=== PATIENT | female | born 1950 | race Caucasian/White ===

== ENCOUNTER 2017-03-05 15:21 | Inpatient (IN) | payer MEDICARE, OTHER ==
[~2017-03-05] VITALS: Ht 162.6 cm; Wt 90.4 kg
--- NOTE | ~2017-03-05 | ER ---
PATIENT'S NAME: TRAUMA, [facility] AGE: 89 Y [address] ROOM: G6202 [place], [place] [address] LOCATION: [facility] ADMIT DATE: 03/05/2017 ER/Outpatient Report DISCHARGE DATE: FAMILY PHYSICIAN: Elier Bernard MD ATTENDING PHYSICIAN: Imelda Saldana Note: This is for the patient Nuha Escobar. CHIEF COMPLAINT: Unresponsive. HISTORY OF PRESENT ILLNESS: Ms. Escobar presents by ambulance after being unresponsive at home. According to family members, the patient had 2 falls today. She also had a fall 2 days previous. She was discharged and had been doing well until this morning when she fell. She was slightly confused after that and then around 2:00 p.m. she fell again, became markedly confused, started having vision issues, and rapidly became unresponsive. The ambulance was contacted and she was brought in directly from home. She has an extensive medical history based on her med list. She has been suffering from some dizziness as well. PAST MEDICAL HISTORY: Again, based on med list review, includes diabetes, possible depression, dizziness, chronic pain, hypertension, high cholesterol. REVIEW OF SYSTEMS: Could not complete secondary to the patient's mental status. PHYSICAL EXAMINATION: VITAL SIGNS: Blood pressure 199/90, pulse 97, respiratory rate is 22, temperature 97.5, SpO2 is 97% on room air. Pain is 0/10. GENERAL: Elderly-appearing female, recumbent on exam table with intermittent sonorous respirations and otherwise unresponsive. NEUROLOGIC: The patient is unresponsive. Pupils are 5 on the right, 3 on the left, minimally responsive. No extraocular movements are noted. There is no tone peripherally. GCS is 3. HEENT: Grossly normocephalic, atraumatic. No obvious external signs of trauma. No bleeding or scalp bogginess or tenderness. The eyes are asymmetric. Pupils minimally reactive. No extraocular movements. Oropharynx is moist. CHEST/HEART: Regular rate and rhythm. No obvious murmurs. Lungs grossly clear to auscultation bilaterally. There are some intermittent sonorous respirations. ABDOMEN: Appears benign to inspection and palpation. BACK: Did not have any obvious abnormalities. EXTREMITIES: Warm and well perfused. PATIENT'S NAME: TRAUMA, [facility] AGE: 89 Y [address] ROOM: G6[address] [place], [place] [address] LOCATION: [facility] ADMIT DATE: 03/05/2017 ER/Outpatient Report DISCHARGE DATE: FAMILY PHYSICIAN: Elier Bernard MD ATTENDING PHYSICIAN: Imelda Saldana SKIN: Appears to be clean, dry, and intact. LABORATORY DATA AND X-RAYS: Head CT reveals extensive bilateral subdural hematomas. EKG is a sinus rhythm, ventricular rate of 75 with first-degree heart block and otherwise normal intervals and axis. No signs of acute ischemia, no comparison available. The chest x-ray shows no evidence of pneumonia and the endotracheal tube in good position. Labs are all pending, but sodium is 140, potassium is 4.1, chloride of 105, CO2 is 28, creatinine 1.0. ALT, AST unremarkable. Troponin is below detectable threshold. White count 8.2, hemoglobin 13.4, platelets of 273. Urinalysis with no obvious source of infection, 15 protein. Unremarkable micro. IMPRESSION: 1. Chronic dizziness resulting in fall and resulting in bilateral acute subdural hematomas with altered mental status. 2. Bilateral acute subdural hematomas with altered mental status. EMERGENCY DEPARTMENT COURSE: The patient was seen and evaluated emergently. She was taken directly to head CT, where intracranial hemorrhage was confirmed. She was intubated for airway protection as she did have sonorous respirations and she did in fact vomit one time just before intubation. She was repositioned aggressively. Dr. Saldana was consulted and evaluated the patient, will discuss the case with the family and will take her to the operating room for surgical decompression. The patient had no other specific findings on her evaluation. Family was updated extensively in the emergency department. PROCEDURES: Intubation. The patient was intubated with a 7.5 endotracheal tube to 22 cm at the teeth. A 3-blade GlideScope was used with a grade 1 visualization of the glottis. There was scant vomitus in the airway. Not a difficult intubation. The patient tolerated the procedure well. She was induced and paralyzed with etomidate and vecuronium. CRITICAL CARE: 43 minutes of critical care time was spent on this patient. Care time is warranted for severe encephalopathy and intracranial hemorrhage resulting in altered mental status. This is independent of the time for intubation. I have ordered the head CT, I evaluated the patient, I ordered and interpreted chest x-ray and EKG. I discussed that CT results with Radiology and with Neurosurgery. I consulted Neurosurgery. I managed her in the emergency department and she was taken to the operating room for surgical decompression. PATIENT'S NAME: [facility] AGE: 89 Y [address] ROOM: [address] [place], [place] [address] LOCATION: [facility] ADMIT DATE: 03/05/2017 ER/Outpatient Report DISCHARGE DATE: FAMILY PHYSICIAN: Elier Bernard MD ATTENDING PHYSICIAN: Imelda Saldana SINA MD CLEMENTINE CONRAD/lin /[id number] d: 03/06/17716 t: 03/17/17 0621, OUTPATIENT REPORT
--- NOTE | ~2017-03-05 | OR ---
PATIENT'S NAME: JED REDDING [facility] AGE: 67 Y [address] ROOM: [address] [address] LOCATION: [facility] ADMIT DATE: 03/05/2017 OR/Procedure Report DISCHARGE DATE: FAMILY PHYSICIAN: Elier Bernard MD ATTENDING PHYSICIAN: Imelda Julio SURGEON: Imelda Julio MD GOLD LEAF GILDER: Vikash Grier DATE OF PROCEDURE: 03/05/2018 PREOPERATIVE DIAGNOSIS: Bilateral acute subdural hematoma. POSTOPERATIVE DIAGNOSIS: Bilateral acute subdural hematoma. PROCEDURES PERFORMED: 1. Left craniotomy and evacuation of acute subdural hematoma. 2. Placement of left ventriculostomy for management of intracranial pressure. 3. Right craniotomy for evacuation of acute subdural hematoma. ANESTHESIA: General. ANESTHESIA PROVIDER: Robin Head MD HISTORY: The patient is a 68-year-old female, who sustained a fall at home and became less responsive. She was brought to the emergency room and found to have bilateral acute subdural hematomas. Surgery was recommended to evacuate the hematomas. The procedure, benefits, and risks were discussed with the patient's family. With their consent, she was brought to the operating room for surgery. PROCEDURE IN DETAIL: In the operating room, the patient was placed in a supine position. She was already intubated. Anesthesia was induced. Mannitol was already given. Antibiotics were administered. We performed left side craniotomy first as the subdural hematoma was larger on this side. A roll was placed under the patient's left shoulder and head was supported in a gel donut. The hair on her head was clipped on both sides. The whole area was prepped and draped in a sterile fashion. The incision was marked out on the left side of the patient's head and the whole area was prepped and draped in a sterile fashion. Local anesthesia was infiltrated. The incision was opened with a #10 blade. A Bovie was used to deepen the incision. The scalp flap was peeled off the skull. The scalp flap was held back with sutures, tied to rubber bands, and secured with an Allis forceps. Boulder holes were placed and a craniotomy flap was turned. The dura was bulging appreciably indicating subdural hematoma under pressure. The dura was opened PATIENT'S NAME: JED REDDING [facility] AGE: 67 Y [address] ROOM: [address] [address] LOCATION: [facility] ADMIT DATE: 03/05/2017 OR/Procedure Report DISCHARGE DATE: FAMILY PHYSICIAN: Elier Bernard MD ATTENDING PHYSICIAN: Imelda Julio and the subdural hematoma was encountered. This was a very thick subdural hematoma producing significant mass effect. Working very carefully using suction and irrigation as well as the forceps to remove some of the more solid blood clots, the hematoma was evacuated. A careful search was made for any obvious bleeding spots but no bleeding spots were found. Irrigation was used to wash out the subdural space. The dura was closed as best as possible, but it was not possible to achieve complete closure. A piece of DuraGen was then used to cover the area. The DuraGen was about 3 x 4 cm. The bone flap was then replaced using titanium miniplates, so reattached the flap to the craniotomy defect. The scalp was closed with appropriate suture materials and nylon was used to close the skin. Attention was then directed to the ventriculostomy. The patient was repositioned. The head was re-prepped and redraped at this time to include the right side where the craniotomy was going to be done subsequently. The entry point for the ventriculostomy was marked out already and the area was infiltrated with local anesthesia. The incision was opened. A twist drill was used to drill a hole through the skull. The dura was coagulated. The catheter was tunneled under the skin and brought out of the twist drill site. The catheter was inserted into the ventricle and spinal fluid was obtained. The catheter was then secured to the scalp. The twist drill incision was closed. The table was then tilted slightly to the right side and the patient's head was turned to expose the right side of the head. A right craniotomy was performed. The incision had been marked out already and had been infiltrated with local anesthesia. This incision was opened with a #10 blade. A Bovie was used to deepen the incision to the skull. The scalp flap was peeled back and held back with sutures and rubber band. Boulder holes were made and the bone flap was turned. The dura was opened and once again, we encountered six subdural hematomas under pressure. The hematoma was evacuated using a combination of suction, irrigation, and forceps to remove some of the bigger pieces. Irrigation was continued until all bleeding was removed. Hemostasis was achieved. We used some fibrillar to pack some areas that were still bleeding. It was not possible to close the dura completely on this side as well. A piece of DuraGen was laid over the dural defect. The bone flap was reattached using titanium miniplates. The skin was closed with appropriate suture materials. The whole head was then wrapped with a sterile dressing to include both craniotomy sites as well as the site for the ventriculostomy. PATIENT'S NAME: JED REDDING [facility] AGE: 67 Y [address] ROOM: [place] [address] LOCATION: [facility] ADMIT DATE: 03/05/2017 OR/Procedure Report DISCHARGE DATE: FAMILY PHYSICIAN: Elier Bernard MD ATTENDING PHYSICIAN: Imelda Julio The patient tolerated the procedure without any apparent complications. Swabs, needles, and instruments were all accounted for at the end of the case. Estimated blood loss was about 500 mL. There was no reason for blood transfusion. The patient's prognosis is guarded at this time given the extent of trauma and the size of the subdural hematomas. Hopefully, this surgery will provide the best chance for recovery. IMELDA JULIO MD CNO/modl /[id number] CC: Elier Bernard MD d: 03/06/17 2312 t: 03/08/17 2247, OPERATIVE SUMMARY
--- NOTE | ~2017-03-05 | HP ---
PATIENT'S NAME: JED REDDING [facility] AGE: 67 Y [address] ROOM: [place] [address] LOCATION: [facility] ADMIT DATE: 03/05/2017 History & Physical DISCHARGE DATE: FAMILY PHYSICIAN: Elier Bernard MD ATTENDING PHYSICIAN: Imelda Julio DATE OF SERVICE: PATIENT IDENTIFICATION: Jed Redding is a 67-year-old female. PRESENTING COMPLAINT: Fall with decreased level of consciousness. HISTORY OF PRESENT ILLNESS: History was obtained from patient's family members as the patient herself was unable to provide a history. According to the family members, the patient had a fall about close to 2:00 to 3:00 p.m. on 03/05/2017. The patient had difficulty getting back up by herself after the fall and had to be helped to get up by the . Earlier on in the day, patient had fallen when her leg twisted on the sidewalk. She also hit her head at that time. Prior to these two falls on March 05, patient had fallen also on 03/03/2017 while at [employer]. After that fall on March 03, the patient was seen in the hospital and a head CT scan was done and it was normal. As a result of the second fall today, the patient was brought to the emergency room as she was not responding. She had a head CT scan performed. This time around the head CT scan showed bilateral acute subdural hematomas with mass effect. I was, therefore, consulted to see the patient. PAST MEDICAL HISTORY: The patient has had a history of frequent falls and unsteadiness for which she sees Dr. Chiu, neurologist. Other past medical history includes; chronic pancreatitis, type 2 diabetes. PAST SURGICAL HISTORY: The patient has also had a knee replacement. CURRENT MEDICATIONS: Please see chart. ALLERGIES: PLEASE SEE CHART. PATIENT'S NAME: JED REDDING [facility] AGE: 67 Y [address] ROOM: [place] [address] LOCATION: [facility] ADMIT DATE: 03/05/2017 History & Physical DISCHARGE DATE: FAMILY PHYSICIAN: Elier Bernard MD ATTENDING PHYSICIAN: Imelda Julio SOCIAL HISTORY: The patient is . FAMILY HISTORY: There is no family history relevant to present symptoms. REVIEW OF SYSTEMS: Unable to obtain a review of systems as patient is not responding at this time. PHYSICAL EXAMINATION: GENERAL: The patient is seen in the ER, lying on a gurney. VITAL SIGNS: Stable. NEUROLOGIC: Pupils are 4 mm bilaterally and nonreactive. The patient had no motor response. She had no verbal response. While performing the examination, patient retched one time and vomited. CARDIOVASCULAR SYSTEM: Heart sounds are present. RESPIRATORY SYSTEM: The patient is shortly intubated. EXTREMITIES: No cyanosis or clubbing. SKIN: No skin rashes or skin masses. HEENT: Head: There is a bruise to the back of the patient's head when she fell. Eyes and ears; no evidence of trauma. SKIN: No skin rashes or skin masses. REVIEW OF IMAGING STUDIES: The patient has had a head CT scan done. CT scan shows bilateral acute subdural hematomas, larger on the left side. There was mass effect from the subdural hematomas. The report indicates tentorial herniation. IMPRESSION: A 67-year-old female with bilateral acute subdural hematomas on account of fall. The patient is showing defects of increased intracranial pressure already. MEDICAL DECISION MAKING: The patient was intubated. A Guerrero catheter was placed, and she was started on mannitol in very quick sequence. I then discussed the situation with the patient's family and explained the seriousness of the problem to them. I recommended craniotomy and evacuation of subdural hematoma. The patient's family gave consent to perform the procedure and patient was taken to the operating room to undergo surgery. Details of surgery are covered in the operative notes. PATIENT'S NAME: JED REDDING [facility] AGE: 67 Y [address] ROOM: [place] [address] LOCATION: [facility] ADMIT DATE: 03/05/2017 History & Physical DISCHARGE DATE: FAMILY PHYSICIAN: Elier Bernard MD ATTENDING PHYSICIAN: Imelda Julio IMELDA JULIO MD CNO/modl /[id number] D: [id number] T: 249 HISTORY & PHYSICAL
--- NOTE | ~2017-03-05 | NDGEN ---
PATIENT'S NAME: JED REDDING [facility] AGE: 67 Y [address] ROOM: [address] [address] LOCATION: [facility] ADMIT DATE: 03/05/2017 Neurodiagnostics DISCHARGE DATE: FAMILY PHYSICIAN: Elier Bernard MD ATTENDING PHYSICIAN: Imelda Saldana PROCEDURE: ELECTROENCEPHALOGRAM DATE OF PROCEDURE: 03/10/2017 INDICATION: A 67-year-old female patient who has had a history of vertigo and fall. She was having jerking movements, on an artificial ventilation. She is presently in the ICU. FINDINGS: The general background rhythm was slow at 4-6 hertz. During the time of the recording, the patient had her eyes closed and appeared to be sedated or sleeping. Photic stimulation was given to the patient, but did not cause any change in the background rhythm. Background amplitudes were in the range of 25 to 30 to 45 microvolts. No time was there any abnormal epileptiform activity, and no seizures were recorded. IMPRESSION: There is generalized slowing in the background rhythm suggestive of the patient being sleepy or sleeping at that time. Clinical correlation is advised. MD JACKSON JACOME/lin /[id number] dtt: 03/24/17 1651 NITA JASON R. dtd: 03/10/17 1800
--- NOTE | ~2017-03-05 | DS ---
PATIENT'S NAME: JED REDDING [facility] AGE: 67 Y [address] ROOM: [address] [place] [address] LOCATION: GICU ADMIT DATE: 03/05/2017 Discharge Summary DISCHARGE DATE: 03/26/2017 FAMILY PHYSICIAN: Elier Bernard MD ATTENDING PHYSICIAN: Imelda Julio TRANSFER DATE: Transferred to [facility] on March 26, 2017. REASON FOR ADMISSION: The patient is a 67-year-old female, who sustained bilateral acute subdural hematomas as a result of fall at home. She has fallen two times on the day of admission. Prior to this, she had fallen a few days earlier. After the initial fall a few days earlier, she had a CT scan which was normal, but after the second fall CT scan showed bilateral acute subdural hematomas, requiring surgery for evacuation. At the time of arrival to the emergency room, the patient's pupils were fixed and dilated bilaterally. She had no motor response to pain. She was not verbalizing. TREATMENT RENDERED: The patient was taken to the operating room and underwent emergency craniotomy for evacuation of subdural hematoma. She also had placement of an intracranial pressure monitor. HOSPITAL COURSE: Initially, the patient was not responsive, but after about 2 weeks she started to respond some more and began to follow commands. This was a very pleasant surprise. We had considered doing a tracheostomy for her, but with her starting to follow commands and generally starts to wake up, the craniotomy was deferred and the patient ended up being extubated instead. We felt that her swallowing was not strong enough, even though she was waking up and we recommended placement of a PEG tube. The PEG tube was placed by Dr. Joshua on March 24, 2017. Throughout the patient's stay in hospital, conversations were held with the family to update them on her progress. The Palliative Care Service was involved in supporting the family and the watch train inspector were involved in taking care of the patient's ICU needs. From a neurosurgical standpoint, she really did well from the craniotomy and evacuation of subdural hematoma. She was evaluated by [facility], and was accepted to be transferred. At the time of transfer, the patient was able to follow commands and was verbalizing. She could recognize family members and identify them for who they are. She did move all her extremities, but she was still weaker in the left leg and in the right arm. PATIENT'S NAME: JED REDDING [facility] AGE: 67 Y [address] ROOM: [address] [place], [place] [address] LOCATION: [facility] ADMIT DATE: 03/05/2017 Discharge Summary DISCHARGE DATE: 03/26/2017 FAMILY PHYSICIAN: Elier Bernard MD ATTENDING PHYSICIAN: Imelda Julio Followup CT scans were done. There was only slight residual subdural hematoma not causing any mass effect. There was no hydrocephalus. The patient's incisions were healing well. Dayhoit and sutures were removed. Overall, the patient did exceedingly well and in a relatively short period of time considering the extent of her initial injury. We hope that she continues to improve now that she has been transferred to [facility]. FINAL DIAGNOSES: 1. Traumatic head injury with bilateral subdural hematomas. 2. Unsteadiness. 3. Diabetes. IMELDA JULIO MD CNO/modl /[id number] CC: Elier Bernard MD d: t: 03/30/17 0055, DISCHARGE SUMMARY
--- NOTE | ~2017-03-05 | ECHO ---
Transthoracic Echocardiography Report (TTE) Demographics Patient Name JED REDDING Date of Study 03/06/2017 Patient Number [id number] Visit Number [id number] Date of 1950 Room Number G6202 Gender Female Number Age 67 year(s) Referring Kenny Montgomery Label Coder Yuliya Ramirez, Physician Kenny Montgomery RT,RVT,RDCS MD Physician Interpreting Ismael Ludwig Soap Drier Operator Physician Supervising Ordering Kenny Montgomery MD MD/MLP Physician Nurse Stress [employer] [place] Truck Driver Conclusions Contractility Score Summary Normal Left Ventricular contractility was noted. Summary The estimated left ventricular ejection fraction is 65-70% with normal WM,internal dimension and wall thickness. Mildly dilated LA. There is mild pulmonary hypertension. The pulmonary pressure (RVSP) is 41 mmHg. Procedure Type of Study TTE procedure:2D Echocardiogram. Procedure Date Date: 03/06/2017 Start: 02:49 PM Study Location: Inpatient Portable Technical Quality: Adequate visualization Indications:Dyspnea/SOB. Appropriate Use Criteria: 9 Patient Status: Routine HR: 71 bpm BP: 118/62 mmHg M-Mode/2D Measurements LV Diastolic Dimension: 5.06 cm LV Systolic Dimension: 2.75 cm LV Septum Diastolic: 1.1 cm LV PW Diastolic: 0.93 cm AO Root Dimension: 3.2 cm Cardiac Output: 3.84 l/min AV Cusp Separation: 1.5 cm RV Diastolic Dimension: 2.3 cm EF Estimated: 70 % LVOT: 1.9 cm LVOT VTI: 19.1 cm LV Stroke volume: 54.13 ml Doppler Measurements AV Peak Velocity: 1.53 m/s MV Peak E-Wave: 0.96 m/s AV Peak Gradient: 9.36 mmHg MV Peak A-Wave: 0.81 m/s AV Mean Gradient: 5 mmHg MV E/A Ratio: 1.18 LVOT Peak Velocity: 0.87 m/s MV P1/2t: 58 msec TR Gradient:25.2 mmHg PV Peak Velocity: 1.26 m/s Estimated RAP:10 mmHg PV Peak Gradient: 6.35 mmHg Estimated RVSP: 35 mmHg Estimated PASP: 35.2 mmHg E' Lateral Velocity: 0.1 m/s A' Lateral Velocity: 0.09 m/s MV E/E' Ratio: 9.8 Findings Left Ventricle Normal left ventricle size and function. Right Ventricle Normal right ventricle structure and function. Left Atrium Mildly dilated LA. Right Atrium Normal right atrial size. Mitral Valve Normal mitral valve structure and function. Aortic Valve Normal aortic valve structure and function. Tricuspid Valve There is mild pulmonary hypertension. The pulmonary pressure (RVSP) is 41 mmHg. Pulmonic Valve Normal pulmonic valve structure and function. Pericardial Effusion No evidence of pericardial effusion. Miscellaneous Visualized portions of the aortic root and ascending aorta appear normal in size. Pleural Effusion No evidence of pleural effusion. Contractility Score LV regional wall motion:(0-Non visualized 1-Normal 2-Hypokinesis 3-Akinesis 4-Dyskinesis 5-Aneurysm) Signature dtt: Vani Guevara dtd: 03/06/17 1449 Physician Self Edit
--- NOTE | ~2017-03-05 | ENPV ---
Vascular Lower Extremities DVT Study Procedure Demographics Patient Name JED REDDING Date of Study 03/11/2017 Patient Number [id number] Gender Female Date of 1950 Age 67 Visit Number [id number] Height 64 Accession Number [id number] Weight 210 Referring Shana Anders MD Interpreting Steve Mello MD Physician Kenny Montgomery Physician Physician Ordering Physician Kenny Montgomery [facility] Representative Office Machine Mechanic Blanca Medeiros RDCS, RVT Desiree Quijano RVT Conclusions Summary No evidence of deep vein thrombosis or superficial thrombophlebitis in the lower extremities bilaterally . Procedure Type of Study: Veins:Lower Extremities DVT Study, Venous Duplex Lower Extremity Bilateral. Indications for Study:Trauma. Appropriate Use Criteria:9 Patient Status:Routine. Study Location:Inpatient Portable. Technical Quality:Adequate visualization. Velocities are measured in cm/s ; Diameters are measured in cm Right Lower Extremities DVT Study Measurements Right 2D and Doppler Measurements + + + + +------+------+ + !Location !Visualized!Compressibility!Thrombosis!Signal!Reflux!Reflux ! ! ! ! ! ! ! !(sec) ! + + + + +------+------+ + !GSV Thigh !Yes !Yes !None !Phasic! ! ! + + + + +------+------+ + !Common !Yes !Yes !None !Phasic! ! ! !Femoral ! ! ! ! ! ! ! + + + + +------+------+ + !Prox !Yes !Yes !None !Phasic! ! ! !Femoral ! ! ! ! ! ! ! + + + + +------+------+ + !Mid Femoral!Yes !Yes !None !Phasic! ! ! + + + + +------+------+ + !Dist !Yes !Yes !None !Phasic! ! ! !Femoral ! ! ! ! ! ! ! + + + + +------+------+ + !Popliteal !Yes !Yes !None !Phasic! ! ! + + + + +------+------+ + !Gastroc !Yes !Yes !None !Phasic! ! ! + + + + +------+------+ + !PTV !Yes !Yes !None !Phasic! ! ! + + + + +------+------+ + !Peroneal !Yes !Yes !None !Phasic! ! ! + + + + +------+------+ + Left Lower Extremities DVT Study Measurements Left 2D and Doppler Measurements + + + + +------+------+ + !Location !Visualized!Compressibility!Thrombosis!Signal!Reflux!Reflux ! ! ! ! ! ! ! !(sec) ! + + + + +------+------+ + !GSV Thigh !Yes !Yes !None !Phasic! ! ! + + + + +------+------+ + !Common !Yes !Yes !None !Phasic! ! ! !Femoral ! ! ! ! ! ! ! + + + + +------+------+ + !Prox !Yes !Yes !None !Phasic! ! ! !Femoral ! ! ! ! ! ! ! + + + + +------+------+ + !Mid Femoral!Yes !Yes !None !Phasic! ! ! + + + + +------+------+ + !Dist !Yes !Yes !None !Phasic! ! ! !Femoral ! ! ! ! ! ! ! + + + + +------+------+ + !Popliteal !Yes !Yes !None !Phasic! ! ! + + + + +------+------+ + !Gastroc !Yes !Yes !None !Phasic! ! ! + + + + +------+------+ + !PTV !Yes !Yes !None !Phasic! ! ! + + + + +------+------+ + !Peroneal !Yes !Yes !None !Phasic! ! ! + + + + +------+------+ + Impressions Right Impression No DVT seen. Left Impression No DVT seen. Signature dtt: OSCAR OZUNA dtd: 03/11/17 1617 Physician Self Edit
--- NOTE | ~2017-03-05 | ENPV ---
Vascular Lower Extremities DVT Study Procedure Demographics Patient Name JED REDDING Date of Study 03/25/2017 Patient Number [id number] Gender Female Date of 1950 Age 67 Visit Number [id number] Height 64 Accession Number [id number] Weight 210 Referring Kenny Mello MD Physician Kenny Montgomery MD Physician Physician Ordering Physician Circulation Director Underground Repairer Yuliya Ramirez, RT,RVT,RDCS Conclusions Procedure Type of Study: Veins:Lower Extremities DVT Study, Venous Duplex Lower Extremity Bilateral. Appropriate Use Criteria:9 Patient Status:Routine. Study Location:Inpatient Portable. Technical Quality:Adequate visualization. - Preliminary reported to:YUSE[facility] Cash. Velocities are measured in cm/s ; Diameters are measured in cm Right Lower Extremities DVT Study Measurements Right 2D and Doppler Measurements + + + + +------+------+ + !Location !Visualized!Compressibility!Thrombosis!Signal!Reflux!Reflux ! ! ! ! ! ! ! !(sec) ! + + + + +------+------+ + !GSV Thigh !Yes !Yes !None !Phasic!No ! ! + + + + +------+------+ + !Common !Yes !Yes !None !Phasic!No ! ! !Femoral ! ! ! ! ! ! ! + + + + +------+------+ + !Prox !Yes !Yes !None !Phasic!No ! ! !Femoral ! ! ! ! ! ! ! + + + + +------+------+ + !Mid Femoral!Yes !Yes !None !Phasic!No ! ! + + + + +------+------+ + !Dist !Yes !Yes !None !Phasic!No ! ! !Femoral ! ! ! ! ! ! ! + + + + +------+------+ + !Popliteal !Yes !Yes !None !Phasic!No ! ! + + + + +------+------+ + !Gastroc !Yes !Yes !None !Phasic!No ! ! + + + + +------+------+ + !PTV !Yes !Yes !None !Phasic!No ! ! + + + + +------+------+ + !Peroneal !Yes !Yes !None !Phasic!No ! ! + + + + +------+------+ + Left Lower Extremities DVT Study Measurements Left 2D and Doppler Measurements + + + + +------+------+ + !Location !Visualized!Compressibility!Thrombosis!Signal!Reflux!Reflux ! ! ! ! ! ! ! !(sec) ! + + + + +------+------+ + !GSV Thigh !Yes !Yes !None !Phasic!No ! ! + + + + +------+------+ + !Common !Yes !Yes !None !Phasic!No ! ! !Femoral ! ! ! ! ! ! ! + + + + +------+------+ + !Prox !Yes !Yes !None !Phasic!No ! ! !Femoral ! ! ! ! ! ! ! + + + + +------+------+ + !Mid Femoral!Yes !Yes !None !Phasic!No ! ! + + + + +------+------+ + !Dist !Yes !Yes !None !Phasic!No ! ! !Femoral ! ! ! ! ! ! ! + + + + +------+------+ + !Popliteal !Yes !Yes !None !Phasic!No ! ! + + + + +------+------+ + !Gastroc !Yes !Yes !None !Phasic!No ! ! + + + + +------+------+ + !PTV !Yes !Yes !None !Phasic!No ! ! + + + + +------+------+ + !Peroneal !Yes !Yes !None !Phasic!No ! ! + + + + +------+------+ + Impressions Right Impression No evidence of deep vein thrombosis in the right lower extremity, Left Impression No evidence of deep vein thrombosis in the right lower extremity, Signature dtt: OSCAR OZUNA dtd: 03/25/17 1328 Physician Self Annette
--- NOTE | ~2017-03-05 | OR ---
PATIENT'S NAME: JED REDDING [facility] AGE: 67 Y [address] ROOM: [address] [address] LOCATION: GICU ADMIT DATE: 03/05/2017 OR/Procedure Report DISCHARGE DATE: FAMILY PHYSICIAN: Elier Bernard MD ATTENDING PHYSICIAN: Imelda Saldana SURGEON: Duran Joshua MD HAZMAT CDL A DRIVER: DATE OF PROCEDURE: 03/24/2017 PREOPERATIVE DIAGNOSIS: Intracranial bleed with need for long-term enteral access. POSTOPERATIVE DIAGNOSIS: Intracranial bleed with need for long-term enteral access. PROCEDURE: Percutaneous endoscopic gastrostomy tube placement. FINDINGS: Tube appeared to be in good position 4.5 cm to the skin. ESTIMATED BLOOD LOSS: Minimal. COMPLICATIONS: None. INDICATIONS: The patient is a 67-year-old female, who presented with subdural hematoma. She had craniectomy. She is recovering but is in need of long-term enteral access. We discussed PEG placement with the patient as well as her , the risks, benefits, and alternatives, which include, but were not limited to bleeding, infection, wound infections, erosions, malpositioning of the tube, and injury to other viscera. He understood the risks and elected to proceed. DESCRIPTION OF PROCEDURE: In the ICU, the patient was supine. A bite block was placed. She was given sedation. Flexible endoscope was inserted in the esophageal lumen and advanced through the esophagus and into the gastric lumen. This was insufflated. We selected a site in the anterior abdominal wall, moved in a one-to-one motion. There also was a light reflex in this area. This area was then cleansed with ChloraPrep. Local anesthetic was infiltrated. A stab incision was created. The access needle was inserted through the stab incision and into the gastric lumen. Wire access was then obtained. The wire was snared. The snare flexible endoscope and wire were then all brought out through the mouth. The PEG tube was placed over the wire. The wire was again snared. The wire, PEG tube, and flexible endoscope were then all pulled back into the gastric lumen. The wire was released. The rubber bumper was placed on the PEG tube. It appeared to be in good position at 2.5 cm at the skin. The operative field was inspected. It appeared PATIENT'S NAME: JED REDDING [facility] AGE: 67 Y [address] ROOM: [place] [address] LOCATION: GICU ADMIT DATE: 03/05/2017 OR/Procedure Report DISCHARGE DATE: FAMILY PHYSICIAN: Elier Bernard MD ATTENDING PHYSICIAN: Imelda Saldana. There did not appear to be undue tension on the tube. The flexible endoscope was advanced into the duodenum. Again, no duodenitis. No other gastric abnormalities were present. She was noted to have what appeared to be fundic gland polyps. We withdrew the scope. She tolerated this well postprocedure. POSTPROCEDURE RECOMMENDATIONS: We will have the PEG to gravity today, likely will be able to begin using this tomorrow. DURAN MD ISRAEL REEDER/lin /[id number] d: 03/24/172039 t: 03/26/17 1030, OPERATIVE SUMMARY
[2017-03-05 15:41] LABS: BASOPHIL % 0.4 %; EOSINOPHIL % 0.2 %; HEMATOCRIT 39.3 % (30.0-46.0); HEMOGLOBIN 13.4 g/dL (10.0-15.0); IMMATURE GRANULOCYTE % 0.2 %; LYMPHOCYTE # 3.2 K/uL (0.8-4.0); LYMPHOCYTE % 38.8 %; MCH 32.4 pg (27.0-34.0); MCHC 34.1 gm/dL (32.0-36.5); MCV 94.9 fl (83.0-98.0); MONOCYTE # 0.9 K/uL (0.0-1.0); MONOCYTE % 11.2 %; MPV 10.7 fl (9.4-12.4); NEUTROPHIL % 49.2 %; NRBC % 0 /100WBC (0-0.00); PLATELET COUNT 273 K/uL (150-450); RBC 4.14 M/uL (3.00-5.00); WBC 8.2 K/uL (4.0-11.0)
[2017-03-05 15:51] LABS: INR - (THERAPEUTIC) 0.96 (0.92-1.07); PROTIME 10.1 SECONDS (9.8-11.4); PTT 23 SECONDS (25-32)
[2017-03-05 16:00] LABS: ALBUMIN 3.9 gm/dL (3.5-5.0); ANION GAP 11.1 (10.0-19.0); CALCIUM 9.2 mg/dL (8.5-10.5); POTASSIUM 4.1 mMol/L (3.7-5.1)
[2017-03-05 16:16] LABS: BILIRUBIN URINE NEGATIVE (NEGATIVE); BLOOD URINE NEGATIVE /UL (NEGATIVE); COLOR URINE YELLOW (YELLOW); GLUCOSE URINE NEGATIVE (NEGATIVE); KETONE URINE NEGATIVE (NEGATIVE); LEUKOCYTES URINE NEGATIVE /UL (NEGATIVE); NITRITE URINE NEGATIVE (NEGATIVE); PROTEIN URINE 15 mg/dL (NEGATIVE); UROBILINOGEN URINE 1 mg/dL (NORMAL)
[2017-03-05 16:17] LABS: TURBIDITY URINE CLEAR (CLEAR)
[2017-03-05 16:18] LABS: BACTERIA URINE NEGATIVE (NEGATIVE); EPITHELIAL URINE RARE #/HPF (NEGATIVE); HYALINE CAST URINE 0-2 #/LPF (NEGATIVE); MUCUS URINE 1+ (NEGATIVE); RBC URINE NEGATIVE #/HPF (NEGATIVE); WBC URINE NEGATIVE #/HPF (NEGATIVE)
[2017-03-05 17:58] LABS: BICARBONATE 21.3 mmol/L (18.0-23.0); PCO2 33 mmHg (35-45); PO2 81 mmHg (80-90); SODIUM 139 mEq/L (135-145)
[2017-03-05 22:04] LABS: BICARBONATE 26.3 mmol/L (18.0-23.0); LACTATE 2.2 mEq/L (0.50-1.60); PCO2 33 mmHg (35-45); PO2 82 mmHg (80-90)
[2017-03-05 22:08] LABS: BASOPHIL % 0.2 %; EOSINOPHIL % 0.1 %; HEMOGLOBIN 10.4 g/dL (10.0-15.0); IMMATURE GRANULOCYTE % 0.2 %; LYMPHOCYTE # 2.4 K/uL (0.8-4.0); MCH 32.6 pg (27.0-34.0); MCHC 34.9 gm/dL (32.0-36.5); MCV 93.4 fl (83.0-98.0); MONOCYTE # 0.6 K/uL (0.0-1.0); MONOCYTE % 7.5 %; MPV 10.8 fl (9.4-12.4); NEUTROPHIL # (ANC) 5.4 K/uL (1.8-7.8); NRBC % 0 /100WBC (0-0.00); PLATELET COUNT 229 K/uL (150-450); RBC 3.19 M/uL (3.00-5.00); WBC 8.5 K/uL (4.0-11.0)
[2017-03-05 22:09] LABS: HEMATOCRIT 29.8 % (30.0-46.0)
[2017-03-05 22:16] LABS: INR - (THERAPEUTIC) 1.02 (0.92-1.07); PROTIME 10.7 SECONDS (9.8-11.4); PTT 24 SECONDS (25-32)
[2017-03-05 22:20] LABS: ALBUMIN 2.7 gm/dL (3.5-5.0); ANION GAP 12.7 (10.0-19.0); CALCIUM 7.6 mg/dL (8.5-10.5); CREATININE 0.8 mg/dL (0.5-1.1); POTASSIUM 3.7 mMol/L (3.7-5.1); TOTAL BILIRUBIN 0.3 mg/dL (0.0-1.5)
[2017-03-06] MEDS ORDERED: ACTOS45 MG PO (00:22)
[2017-03-06] MEDS ORDERED: WELLBUTRIN XL300 M2 PO (00:24)
[2017-03-06] MEDS ORDERED: CALCIUM GLUC500 MG PO (00:25)
[2017-03-06] MEDS ORDERED: CYMBALTA30 MG (00:26)
[2017-03-06] MEDS ORDERED: CYMBALTA30 MG PO (00:27)
[2017-03-06] MEDS ORDERED: LYRICA 75MG CAP75 MG PO (00:27)
[2017-03-06] MEDS ORDERED: MECLIZINE HCL25 M1 PO (00:29)
[2017-03-06] MEDS ORDERED: GLUCOPHAGE1000 MG PO (00:29)
[2017-03-06] MEDS ORDERED: MS CONTIN30 MG PO (00:30)
[2017-03-06] MEDS ORDERED: INDERAL40 MG PO (00:31)
[2017-03-06] MEDS ORDERED: TRADJENTA5 MG PO (00:32)
[2017-03-06] MEDS ORDERED: ZOCOR40 MG PO (00:32)
[2017-03-06] MEDS ORDERED: ULTRAM50 MG PO (00:35)
[2017-03-06] MEDS ORDERED: VESICARE10 MG PO (00:35)
[2017-03-06 04:13] LABS: BICARBONATE 26.4 mmol/L (18.0-23.0); LACTATE 1.4 mEq/L (0.50-1.60); PCO2 38 mmHg (35-45); PO2 77 mmHg (80-90)
[2017-03-06 04:36] LABS: ALBUMIN 2.7 gm/dL (3.5-5.0); ANION GAP 11.8 (10.0-19.0); CALCIUM 7.6 mg/dL (8.5-10.5); CREATININE 0.8 mg/dL (0.5-1.1); POTASSIUM 3.8 mMol/L (3.7-5.1); TOTAL PROTEIN 6.1 g/dL (6.0-8.4)
[2017-03-06 04:37] LABS: TOTAL BILIRUBIN 0.4 mg/dL (0.0-1.5)
[2017-03-06 04:40] LABS: BASOPHIL % 0.2 %; HEMATOCRIT 28.9 % (30.0-46.0); IMMATURE GRANULOCYTE % 0.2 %; LYMPHOCYTE # 1.8 K/uL (0.8-4.0); LYMPHOCYTE % 22.3 %; MCH 32.7 pg (27.0-34.0); MCHC 34.6 gm/dL (32.0-36.5); MCV 94.4 fl (83.0-98.0); MONOCYTE # 0.8 K/uL (0.0-1.0); MONOCYTE % 9.4 %; MPV 11.2 fl (9.4-12.4); NEUTROPHIL # (ANC) 5.5 K/uL (1.8-7.8); NEUTROPHIL % 67.9 %; NRBC % 0 /100WBC (0-0.00); PLATELET COUNT 185 K/uL (150-450); RBC 3.06 M/uL (3.00-5.00); RDW-CV 12.2 % (11.9-14.6); WBC 8.2 K/uL (4.0-11.0)
[2017-03-06 04:48] LABS: INR - (THERAPEUTIC) 1.05 (0.92-1.07); PTT 25 SECONDS (25-32)
[2017-03-06 12:09] LABS: BICARBONATE 25.7 mmol/L (18.0-23.0); PCO2 37 mmHg (35-45); PO2 85 mmHg (80-90)
[2017-03-06 12:22] LABS: ANION GAP 10.8 (10.0-19.0); POTASSIUM 3.8 mMol/L (3.7-5.1)
[2017-03-06 20:14] LABS: BICARBONATE 23.6 mmol/L (18.0-23.0); LACTATE 1.4 mEq/L (0.50-1.60); PCO2 34 mmHg (35-45); PO2 95 mmHg (80-90)
[2017-03-06 20:29] LABS: ALBUMIN 2.6 gm/dL (3.5-5.0); ANION GAP 10.9 (10.0-19.0); BLOOD UREA NITROGEN 13 mg/dL (6-24); CALCIUM 7.6 mg/dL (8.5-10.5); CHLORIDE 110 mMol/L (96-110); CO2 23 mMol/L (22-32); CREATININE 0.6 mg/dL (0.5-1.1); POTASSIUM 3.9 mMol/L (3.7-5.1); SODIUM 140 mMol/L (135-145)
[2017-03-06 20:31] LABS: PHOSPHORUS 1.2 mg/dL (2.5-4.9)
[2017-03-07 04:20] LABS: BICARBONATE 23.3 mmol/L (18.0-23.0); LACTATE 0.8 mEq/L (0.50-1.60); PCO2 32 mmHg (35-45)
[2017-03-07 04:21] LABS: PO2 117 mmHg (80-90)
[2017-03-07 04:34] LABS: INR - (THERAPEUTIC) 1.1 (0.92-1.07); PROTIME 11.6 SECONDS (9.8-11.4)
[2017-03-07 04:40] LABS: ALBUMIN 2.4 gm/dL (3.5-5.0); ALK PHOS 62 IU/L (33-138); ALT 14 IU/L (12-78); ANION GAP 11.4 (10.0-19.0); AST 27 IU/L (10-40); BLOOD UREA NITROGEN 9 mg/dL (6-24); CALCIUM 7.6 mg/dL (8.5-10.5); CHLORIDE 110 mMol/L (96-110); CO2 23 mMol/L (22-32); CREATININE 0.5 mg/dL (0.5-1.1); POTASSIUM 3.4 mMol/L (3.7-5.1); SODIUM 141 mMol/L (135-145); TOTAL BILIRUBIN 0.5 mg/dL (0.0-1.5); TOTAL PROTEIN 5.9 g/dL (6.0-8.4)
[2017-03-07 04:43] LABS: BASOPHIL % 0.1 %; HEMATOCRIT 25.5 % (33.0-46.0); HEMOGLOBIN 8.8 g/dL (10.0-15.0); IMMATURE GRANULOCYTE # 0.1 K/uL (0.0-0.3); IMMATURE GRANULOCYTE % 0.5 %; LYMPHOCYTE # 1.2 K/uL (0.8-4.0); LYMPHOCYTE % 10.4 %; MCH 32.1 pg (27.0-34.0); MCHC 34.5 gm/dL (32.0-36.5); MCV 93.1 fl (83.0-98.0); MONOCYTE # 1.1 K/uL (0.0-1.0); MONOCYTE % 9.1 %; MPV 11.4 fl (9.4-12.4); NEUTROPHIL # (ANC) 9.3 K/uL (1.8-7.8); NEUTROPHIL % 79.9 %; NRBC % 0 /100WBC (0-0.00); PLATELET COUNT 168 K/uL (150-450); RBC 2.74 M/uL (3.50-5.50); RDW-CV 12.2 % (11.9-14.6); WBC 11.6 K/uL (4.0-11.0)
[2017-03-07 12:06] LABS: BICARBONATE 24.7 mmol/L (18.0-23.0); LACTATE 1.2 mEq/L (0.50-1.60); PCO2 34 mmHg (35-45); PO2 80 mmHg (80-90)
[2017-03-07 12:15] LABS: ANION GAP 10.5 (10.0-19.0); POTASSIUM 3.5 mMol/L (3.7-5.1)
[2017-03-07 20:07] LABS: BICARBONATE 23.3 mmol/L (18.0-23.0); LACTATE 1.7 mEq/L (0.50-1.60); PO2 72 mmHg (80-90)
[2017-03-07 20:09] LABS: PCO2 26 mmHg (35-45)
[2017-03-07 20:21] LABS: ALBUMIN 2.4 gm/dL (3.5-5.0); ANION GAP 11.6 (10.0-19.0); BLOOD UREA NITROGEN 9 mg/dL (6-24); CALCIUM 8.1 mg/dL (8.5-10.5); CHLORIDE 110 mMol/L (96-110); CO2 22 mMol/L (22-32); CREATININE 0.6 mg/dL (0.5-1.1); PHOSPHORUS 0.9 mg/dL (2.5-4.9); POTASSIUM 3.6 mMol/L (3.7-5.1); SODIUM 140 mMol/L (135-145)
[2017-03-08 04:15] LABS: BICARBONATE 25.7 mmol/L (18.0-23.0); LACTATE 1.4 mEq/L (0.50-1.60)
[2017-03-08 04:16] LABS: PCO2 33 mmHg (35-45); PO2 102 mmHg (80-90)
[2017-03-08 04:36] LABS: ALBUMIN 2.2 gm/dL (3.5-5.0); ALK PHOS 65 IU/L (33-138); ALT 13 IU/L (12-78); ANION GAP 10.7 (10.0-19.0); AST 23 IU/L (10-40); BLOOD UREA NITROGEN 8 mg/dL (6-24); CALCIUM 7.8 mg/dL (8.5-10.5); CHLORIDE 111 mMol/L (96-110); CO2 23 mMol/L (22-32); CREATININE 0.5 mg/dL (0.5-1.1); POTASSIUM 3.7 mMol/L (3.7-5.1); SODIUM 141 mMol/L (135-145); TOTAL BILIRUBIN 0.4 mg/dL (0.0-1.5); TOTAL PROTEIN 6.2 g/dL (6.0-8.4)
[2017-03-08 04:40] LABS: BASOPHIL % 0.2 %; EOSINOPHIL % 0.3 %; HEMATOCRIT 24.2 % (33.0-46.0); HEMOGLOBIN 8.5 g/dL (10.0-15.0); IMMATURE GRANULOCYTE # 0.1 K/uL (0.0-0.3); IMMATURE GRANULOCYTE % 0.6 %; LYMPHOCYTE # 1.3 K/uL (0.8-4.0); LYMPHOCYTE % 11.7 %; MCH 32.6 pg (27.0-34.0); MCHC 35.1 gm/dL (32.0-36.5); MCV 92.7 fl (83.0-98.0); MONOCYTE # 0.9 K/uL (0.0-1.0); MONOCYTE % 8.2 %; MPV 11.8 fl (9.4-12.4); NEUTROPHIL # (ANC) 8.6 K/uL (1.8-7.8); NRBC % 0 /100WBC (0-0.00); PLATELET COUNT 185 K/uL (150-450); RBC 2.61 M/uL (3.50-5.50); RDW-CV 12.3 % (11.9-14.6); WBC 10.9 K/uL (4.0-11.0)
[2017-03-08 13:50] LABS: BICARBONATE 24.5 mmol/L (18.0-23.0); LACTATE 1.7 mEq/L (0.50-1.60); PCO2 30 mmHg (35-45); PO2 113 mmHg (80-90)
[2017-03-08 14:00] LABS: ANION GAP 11.7 (10.0-19.0); POTASSIUM 3.7 mMol/L (3.7-5.1)
[2017-03-08 21:09] LABS: ALBUMIN 2.3 gm/dL (3.5-5.0); ANION GAP 11.6 (10.0-19.0); BLOOD UREA NITROGEN 10 mg/dL (6-24); CALCIUM 7.7 mg/dL (8.5-10.5); CHLORIDE 111 mMol/L (96-110); CO2 24 mMol/L (22-32); CREATININE 0.5 mg/dL (0.5-1.1); POTASSIUM 3.6 mMol/L (3.7-5.1); SODIUM 143 mMol/L (135-145)
[2017-03-08 21:17] LABS: PHOSPHORUS 1.4 mg/dL (2.5-4.9)
[2017-03-09 04:09] LABS: BICARBONATE 25.3 mmol/L (18.0-23.0); PCO2 31 mmHg (35-45); PO2 101 mmHg (80-90)
[2017-03-09 04:42] LABS: ALBUMIN 2.2 gm/dL (3.5-5.0); ALK PHOS 70 IU/L (33-138); ALT 16 IU/L (12-78); ANION GAP 11.5 (10.0-19.0); AST 28 IU/L (10-40); BLOOD UREA NITROGEN 12 mg/dL (6-24); CALCIUM 7.7 mg/dL (8.5-10.5); CHLORIDE 110 mMol/L (96-110); CO2 24 mMol/L (22-32); CREATININE 0.4 mg/dL (0.5-1.1); POTASSIUM 3.5 mMol/L (3.7-5.1); SODIUM 142 mMol/L (135-145); TOTAL BILIRUBIN 0.4 mg/dL (0.0-1.5)
[2017-03-09 04:47] LABS: BASOPHIL % 0.3 %; EOSINOPHIL % 0.4 %; HEMATOCRIT 22.5 % (33.0-46.0); IMMATURE GRANULOCYTE # 0.1 K/uL (0.0-0.3); IMMATURE GRANULOCYTE % 0.8 %; LYMPHOCYTE # 1.2 K/uL (0.8-4.0); LYMPHOCYTE % 12.8 %; MCH 31.6 pg (27.0-34.0); MCHC 34.2 gm/dL (32.0-36.5); MCV 92.2 fl (83.0-98.0); MONOCYTE # 0.9 K/uL (0.0-1.0); MONOCYTE % 9.4 %; NEUTROPHIL # (ANC) 7.4 K/uL (1.8-7.8); NEUTROPHIL % 76.3 %; NRBC % 0 /100WBC (0-0.00); PLATELET COUNT 220 K/uL (150-450); RBC 2.44 M/uL (3.50-5.50); RDW-CV 12.4 % (11.9-14.6); WBC 9.7 K/uL (4.0-11.0)
[2017-03-09 04:48] LABS: HEMOGLOBIN 7.7 g/dL (10.0-15.0)
[2017-03-09 12:38] LABS: ANION GAP 9.3 (10.0-19.0); POTASSIUM 3.3 mMol/L (3.7-5.1)
[2017-03-09 20:13] LABS: ALBUMIN 2.3 gm/dL (3.5-5.0); ANION GAP 10.5 (10.0-19.0); BLOOD UREA NITROGEN 12 mg/dL (6-24); CALCIUM 7.9 mg/dL (8.5-10.5); CHLORIDE 107 mMol/L (96-110); CO2 26 mMol/L (22-32); CREATININE 0.5 mg/dL (0.5-1.1); PHOSPHORUS 1.6 mg/dL (2.5-4.9); POTASSIUM 3.5 mMol/L (3.7-5.1); SODIUM 140 mMol/L (135-145)
[2017-03-10 04:09] LABS: PCO2 36 mmHg (35-45)
[2017-03-10 04:10] LABS: BICARBONATE 30.8 mmol/L (18.0-23.0); PO2 69 mmHg (80-90)
[2017-03-10 04:38] LABS: ALBUMIN 2.1 gm/dL (3.5-5.0); ALK PHOS 74 IU/L (33-138); ALT 17 IU/L (12-78); ANION GAP 11.4 (10.0-19.0); AST 37 IU/L (10-40); BLOOD UREA NITROGEN 12 mg/dL (6-24); CALCIUM 7.6 mg/dL (8.5-10.5); CHLORIDE 105 mMol/L (96-110); CO2 27 mMol/L (22-32); CREATININE 0.5 mg/dL (0.5-1.1); POTASSIUM 3.4 mMol/L (3.7-5.1); SODIUM 140 mMol/L (135-145); TOTAL PROTEIN 6.2 g/dL (6.0-8.4)
[2017-03-10 04:40] LABS: TOTAL BILIRUBIN 0.7 mg/dL (0.0-1.5)
[2017-03-10 04:49] LABS: HEMATOCRIT 24.9 % (33.0-46.0); HEMOGLOBIN 8.8 g/dL (10.0-15.0); MCH 32.1 pg (27.0-34.0); MCHC 35.3 gm/dL (32.0-36.5); MCV 90.9 fl (83.0-98.0); MPV 10.7 fl (9.4-12.4); PLATELET COUNT 252 K/uL (150-450); RBC 2.74 M/uL (3.50-5.50); RDW-CV 12.7 % (11.9-14.6); WBC 9.9 K/uL (4.0-11.0)
[2017-03-10 05:26] LABS: BANDED NEUTROPHIL # 1.2 K/uL (0.0-0.1); BANDED NEUTROPHILS % 12 %; LYMPHOCYTE # 2.6 K/uL (0.8-4.0); LYMPHOCYTE % 26 %; MONOCYTE # 0.3 K/uL (0.0-1.0); SEGMENTED NEUTROPHIL # 5.8 K/uL (1.8-7.8); SEGMENTED NEUTROPHIL % 59 %
[2017-03-10 13:57] LABS: ANION GAP 9.6 (10.0-19.0); POTASSIUM 3.6 mMol/L (3.7-5.1)
[2017-03-10 20:39] LABS: ALBUMIN 2.2 gm/dL (3.5-5.0); ANION GAP 10.2 (10.0-19.0); BLOOD UREA NITROGEN 14 mg/dL (6-24); CHLORIDE 103 mMol/L (96-110); CO2 30 mMol/L (22-32); CREATININE 0.5 mg/dL (0.5-1.1); PHOSPHORUS 2.3 mg/dL (2.5-4.9); POTASSIUM 3.2 mMol/L (3.7-5.1); SODIUM 140 mMol/L (135-145)
[2017-03-11 04:14] LABS: BICARBONATE 35.9 mmol/L (18.0-23.0); PCO2 41 mmHg (35-45); PO2 77 mmHg (80-90)
[2017-03-11 04:42] LABS: ALBUMIN 2.1 gm/dL (3.5-5.0); ALK PHOS 65 IU/L (33-138); ALT 21 IU/L (12-78); ANION GAP 11.6 (10.0-19.0); AST 35 IU/L (10-40); BLOOD UREA NITROGEN 16 mg/dL (6-24); CHLORIDE 103 mMol/L (96-110); CO2 30 mMol/L (22-32); CREATININE 0.5 mg/dL (0.5-1.1); POTASSIUM 3.6 mMol/L (3.7-5.1); SODIUM 141 mMol/L (135-145); TOTAL BILIRUBIN 0.4 mg/dL (0.0-1.5)
[2017-03-11 04:51] LABS: BASOPHIL % 0.2 %; EOSINOPHIL # 0.1 K/uL (0.0-0.5); EOSINOPHIL % 0.6 %; HEMATOCRIT 22.6 % (33.0-46.0); IMMATURE GRANULOCYTE # 0.2 K/uL (0.0-0.3); IMMATURE GRANULOCYTE % 2.6 %; LYMPHOCYTE # 1.6 K/uL (0.8-4.0); LYMPHOCYTE % 20.1 %; MCH 32.5 pg (27.0-34.0); MONOCYTE # 0.9 K/uL (0.0-1.0); MONOCYTE % 11.3 %; MPV 10.5 fl (9.4-12.4); NEUTROPHIL # (ANC) 5.3 K/uL (1.8-7.8); NEUTROPHIL % 65.2 %; NRBC % 0.4 /100WBC (0-0.00); PLATELET COUNT 253 K/uL (150-450); RBC 2.43 M/uL (3.50-5.50); RDW-CV 13.1 % (11.9-14.6); WBC 8.1 K/uL (4.0-11.0)
[2017-03-11 04:52] LABS: HEMOGLOBIN 7.9 g/dL (10.0-15.0)
[2017-03-11 17:25] LABS: ALBUMIN 2.1 gm/dL (3.5-5.0); ANION GAP 9.7 (10.0-19.0); BLOOD UREA NITROGEN 16 mg/dL (6-24); CALCIUM 8.5 mg/dL (8.5-10.5); CHLORIDE 107 mMol/L (96-110); CO2 27 mMol/L (22-32); CREATININE 0.5 mg/dL (0.5-1.1); PHOSPHORUS 2.3 mg/dL (2.5-4.9); POTASSIUM 3.7 mMol/L (3.7-5.1); SODIUM 140 mMol/L (135-145)
[2017-03-11 22:26] LABS: BICARBONATE 26.5 mmol/L (18.0-23.0); PCO2 39 mmHg (35-45); PO2 142 mmHg (80-90)
[2017-03-12 04:02] LABS: BICARBONATE 25.7 mmol/L (18.0-23.0); PCO2 37 mmHg (35-45)
[2017-03-12 04:03] LABS: PO2 69 mmHg (80-90)
[2017-03-12 04:20] LABS: ALBUMIN 2.1 gm/dL (3.5-5.0); ALK PHOS 73 IU/L (33-138); ALT 24 IU/L (12-78); AST 35 IU/L (10-40); BLOOD UREA NITROGEN 16 mg/dL (6-24); CALCIUM 8.1 mg/dL (8.5-10.5); CHLORIDE 108 mMol/L (96-110); CO2 23 mMol/L (22-32); CREATININE 0.5 mg/dL (0.5-1.1); SODIUM 138 mMol/L (135-145); TOTAL PROTEIN 6.3 g/dL (6.0-8.4)
[2017-03-12 04:22] LABS: TOTAL BILIRUBIN 0.3 mg/dL (0.0-1.5)
[2017-03-12 04:25] LABS: HEMOGLOBIN 9.2 g/dL (10.0-15.0); MCH 31.3 pg (27.0-34.0); MCV 93.5 fl (83.0-98.0); MPV 10.1 fl (9.4-12.4); RBC 2.94 M/uL (3.50-5.50); RDW-CV 14.3 % (11.9-14.6); WBC 9.2 K/uL (4.0-11.0)
[2017-03-12 04:29] LABS: HEMATOCRIT 27.5 % (33.0-46.0); MCHC 33.5 gm/dL (32.0-36.5); PLATELET COUNT 310 K/uL (150-450)
[2017-03-12 05:17] LABS: ABSOLUTE NEUTROPHIL CT (ANC) 6.6 K/uL (1.8-7.8); BANDED NEUTROPHIL # 0.6 K/uL (0.0-0.1); BANDED NEUTROPHILS % 6 %; LYMPHOCYTE # 1.8 K/uL (0.8-4.0); LYMPHOCYTE % 20 %; MONOCYTE # 0.6 K/uL (0.0-1.0); SEGMENTED NEUTROPHIL # 6.1 K/uL (1.8-7.8); SEGMENTED NEUTROPHIL % 66 %
[2017-03-12 16:05] LABS: BICARBONATE 24.6 mmol/L (18.0-23.0); PCO2 33 mmHg (35-45); PO2 81 mmHg (80-90)
[2017-03-12 16:19] LABS: ALBUMIN 2.2 gm/dL (3.5-5.0); ANION GAP 12.2 (10.0-19.0); BLOOD UREA NITROGEN 17 mg/dL (6-24); CALCIUM 8.6 mg/dL (8.5-10.5); CHLORIDE 107 mMol/L (96-110); CO2 24 mMol/L (22-32); CREATININE 0.5 mg/dL (0.5-1.1); PHOSPHORUS 3.5 mg/dL (2.5-4.9); POTASSIUM 4.2 mMol/L (3.7-5.1); SODIUM 139 mMol/L (135-145)
[2017-03-13 04:07] LABS: BICARBONATE 24.3 mmol/L (18.0-23.0); PCO2 35 mmHg (35-45); PO2 90 mmHg (80-90)
[2017-03-13 04:24] LABS: ALBUMIN 2.1 gm/dL (3.5-5.0); ALK PHOS 75 IU/L (33-138); ALT 25 IU/L (12-78); ANION GAP 12.7 (10.0-19.0); AST 30 IU/L (10-40); BLOOD UREA NITROGEN 18 mg/dL (6-24); CALCIUM 8.5 mg/dL (8.5-10.5); CHLORIDE 109 mMol/L (96-110); CO2 23 mMol/L (22-32); CREATININE 0.5 mg/dL (0.5-1.1); POTASSIUM 3.7 mMol/L (3.7-5.1); SODIUM 141 mMol/L (135-145); TOTAL BILIRUBIN 0.3 mg/dL (0.0-1.5); TOTAL PROTEIN 6.4 g/dL (6.0-8.4)
[2017-03-13 04:32] LABS: HEMATOCRIT 28.4 % (33.0-46.0); HEMOGLOBIN 9.6 g/dL (10.0-15.0); MCH 31.7 pg (27.0-34.0); MCHC 33.8 gm/dL (32.0-36.5); MCV 93.7 fl (83.0-98.0); MPV 9.9 fl (9.4-12.4); PLATELET COUNT 363 K/uL (150-450); RBC 3.03 M/uL (3.50-5.50); RDW-CV 13.9 % (11.9-14.6); WBC 8.9 K/uL (4.0-11.0)
[2017-03-13 05:27] LABS: ABSOLUTE NEUTROPHIL CT (ANC) 5.5 K/uL (1.8-7.8); BANDED NEUTROPHIL # 0.3 K/uL (0.0-0.1); BANDED NEUTROPHILS % 3 %; LYMPHOCYTE # 1.3 K/uL (0.8-4.0); LYMPHOCYTE % 15 %; MONOCYTE # 1.4 K/uL (0.0-1.0); SEGMENTED NEUTROPHIL # 5.3 K/uL (1.8-7.8); SEGMENTED NEUTROPHIL % 59 %
[2017-03-13 16:13] LABS: BICARBONATE 23.3 mmol/L (18.0-23.0); PCO2 32 mmHg (35-45); PO2 83 mmHg (80-90)
[2017-03-13 16:28] LABS: ALBUMIN 2.1 gm/dL (3.5-5.0); ANION GAP 10.5 (10.0-19.0); BLOOD UREA NITROGEN 18 mg/dL (6-24); CALCIUM 8.5 mg/dL (8.5-10.5); CHLORIDE 109 mMol/L (96-110); CO2 23 mMol/L (22-32); CREATININE 0.5 mg/dL (0.5-1.1); PHOSPHORUS 3.3 mg/dL (2.5-4.9); POTASSIUM 4.5 mMol/L (3.7-5.1); SODIUM 138 mMol/L (135-145)
[2017-03-14 04:05] LABS: BICARBONATE 25.9 mmol/L (18.0-23.0); PCO2 34 mmHg (35-45); PO2 178 mmHg (80-90)
[2017-03-14 04:22] LABS: ALBUMIN 2.1 gm/dL (3.5-5.0); ALK PHOS 80 IU/L (33-138); ALT 25 IU/L (12-78); AST 27 IU/L (10-40); BLOOD UREA NITROGEN 17 mg/dL (6-24); CALCIUM 8.5 mg/dL (8.5-10.5); CHLORIDE 106 mMol/L (96-110); CO2 26 mMol/L (22-32); CREATININE 0.5 mg/dL (0.5-1.1); SODIUM 138 mMol/L (135-145); TOTAL PROTEIN 6.6 g/dL (6.0-8.4)
[2017-03-14 04:25] LABS: TOTAL BILIRUBIN 0.5 mg/dL (0.0-1.5)
[2017-03-14 04:26] LABS: HEMATOCRIT 27.5 % (33.0-46.0); HEMOGLOBIN 9.3 g/dL (10.0-15.0); MCH 31.4 pg (27.0-34.0); MCHC 33.8 gm/dL (32.0-36.5); MCV 92.9 fl (83.0-98.0); MPV 9.7 fl (9.4-12.4); PLATELET COUNT 362 K/uL (150-450); RBC 2.96 M/uL (3.50-5.50); RDW-CV 13.5 % (11.9-14.6); WBC 9.8 K/uL (4.0-11.0)
[2017-03-14 04:55] LABS: ABSOLUTE NEUTROPHIL CT (ANC) 7.4 K/uL (1.8-7.8); BANDED NEUTROPHIL # 1.2 K/uL (0.0-0.1); BANDED NEUTROPHILS % 12 %; LYMPHOCYTE # 1.7 K/uL (0.8-4.0); LYMPHOCYTE % 17 %; MONOCYTE # 0.7 K/uL (0.0-1.0); SEGMENTED NEUTROPHIL # 6.2 K/uL (1.8-7.8); SEGMENTED NEUTROPHIL % 63 %
[2017-03-14 15:14] LABS: BICARBONATE 26.2 mmol/L (18.0-23.0); PCO2 36 mmHg (35-45); PO2 91 mmHg (80-90)
[2017-03-14 15:28] LABS: ALBUMIN 2.2 gm/dL (3.5-5.0); ANION GAP 10.7 (10.0-19.0); BLOOD UREA NITROGEN 18 mg/dL (6-24); CALCIUM 8.7 mg/dL (8.5-10.5); CHLORIDE 106 mMol/L (96-110); CO2 25 mMol/L (22-32); CREATININE 0.5 mg/dL (0.5-1.1); PHOSPHORUS 3.6 mg/dL (2.5-4.9); POTASSIUM 3.7 mMol/L (3.7-5.1); SODIUM 138 mMol/L (135-145)
[2017-03-15 04:40] LABS: BICARBONATE 26.9 mmol/L (18.0-23.0); PCO2 37 mmHg (35-45)
[2017-03-15 04:41] LABS: PO2 123 mmHg (80-90)
[2017-03-15 04:52] LABS: BASOPHIL % 0.1 %; EOSINOPHIL # 0.1 K/uL (0.0-0.5); EOSINOPHIL % 0.9 %; HEMATOCRIT 27.5 % (33.0-46.0); HEMOGLOBIN 9.2 g/dL (10.0-15.0); IMMATURE GRANULOCYTE # 0.4 K/uL (0.0-0.3); IMMATURE GRANULOCYTE % 4.9 %; LYMPHOCYTE # 1.3 K/uL (0.8-4.0); LYMPHOCYTE % 14.3 %; MCH 31.2 pg (27.0-34.0); MCHC 33.5 gm/dL (32.0-36.5); MCV 93.2 fl (83.0-98.0); MONOCYTE # 0.8 K/uL (0.0-1.0); MONOCYTE % 8.6 %; MPV 9.2 fl (9.4-12.4); NEUTROPHIL # (ANC) 6.2 K/uL (1.8-7.8); NEUTROPHIL % 71.2 %; NRBC % 0.2 /100WBC (0-0.00); PLATELET COUNT 388 K/uL (150-450); RBC 2.95 M/uL (3.50-5.50); RDW-CV 13.3 % (11.9-14.6); WBC 8.7 K/uL (4.0-11.0)
[2017-03-15 04:56] LABS: ALBUMIN 2.1 gm/dL (3.5-5.0); ALK PHOS 83 IU/L (33-138); ALT 26 IU/L (12-78); ANION GAP 11.9 (10.0-19.0); AST 22 IU/L (10-40); BLOOD UREA NITROGEN 21 mg/dL (6-24); CALCIUM 8.6 mg/dL (8.5-10.5); CHLORIDE 107 mMol/L (96-110); CO2 25 mMol/L (22-32); CREATININE 0.5 mg/dL (0.5-1.1); POTASSIUM 3.9 mMol/L (3.7-5.1); SODIUM 140 mMol/L (135-145); TOTAL BILIRUBIN 0.3 mg/dL (0.0-1.5); TOTAL PROTEIN 6.7 g/dL (6.0-8.4)
[2017-03-16 05:05] LABS: PCO2 39 mmHg (35-45); PO2 105 mmHg (80-90)
[2017-03-16 05:24] LABS: ALBUMIN 2.1 gm/dL (3.5-5.0); ALK PHOS 79 IU/L (33-138); ALT 24 IU/L (12-78); ANION GAP 11.6 (10.0-19.0); AST 20 IU/L (10-40); BLOOD UREA NITROGEN 23 mg/dL (6-24); CALCIUM 8.5 mg/dL (8.5-10.5); CHLORIDE 109 mMol/L (96-110); CO2 26 mMol/L (22-32); CREATININE 0.5 mg/dL (0.5-1.1); POTASSIUM 3.6 mMol/L (3.7-5.1); SODIUM 143 mMol/L (135-145); TOTAL BILIRUBIN 0.3 mg/dL (0.0-1.5); TOTAL PROTEIN 6.6 g/dL (6.0-8.4)
[2017-03-16 05:26] LABS: BASOPHIL % 0.1 %; EOSINOPHIL # 0.1 K/uL (0.0-0.5); EOSINOPHIL % 0.6 %; HEMATOCRIT 27.8 % (33.0-46.0); HEMOGLOBIN 9.4 g/dL (10.0-15.0); IMMATURE GRANULOCYTE # 0.2 K/uL (0.0-0.3); LYMPHOCYTE # 1.1 K/uL (0.8-4.0); LYMPHOCYTE % 10.6 %; MCH 31.8 pg (27.0-34.0); MCHC 33.8 gm/dL (32.0-36.5); MCV 93.9 fl (83.0-98.0); MONOCYTE # 0.8 K/uL (0.0-1.0); MONOCYTE % 7.8 %; MPV 9.4 fl (9.4-12.4); NEUTROPHIL # (ANC) 8.4 K/uL (1.8-7.8); NEUTROPHIL % 78.9 %; NRBC % 0 /100WBC (0-0.00); PLATELET COUNT 371 K/uL (150-450); RBC 2.96 M/uL (3.50-5.50); RDW-CV 13.5 % (11.9-14.6); WBC 10.6 K/uL (4.0-11.0)
[2017-03-17 04:40] LABS: BICARBONATE 30.6 mmol/L (18.0-23.0); PCO2 35 mmHg (35-45); PO2 61 mmHg (80-90)
[2017-03-17 05:01] LABS: ALBUMIN 2.2 gm/dL (3.5-5.0); ALK PHOS 83 IU/L (33-138); ALT 24 IU/L (12-78); ANION GAP 12.8 (10.0-19.0); AST 23 IU/L (10-40); BLOOD UREA NITROGEN 18 mg/dL (6-24); CALCIUM 8.9 mg/dL (8.5-10.5); CHLORIDE 104 mMol/L (96-110); CO2 27 mMol/L (22-32); CREATININE 0.4 mg/dL (0.5-1.1); POTASSIUM 3.8 mMol/L (3.7-5.1); SODIUM 140 mMol/L (135-145); TOTAL BILIRUBIN 0.4 mg/dL (0.0-1.5)
[2017-03-17 05:04] LABS: BASOPHIL % 0.2 %; EOSINOPHIL # 0.2 K/uL (0.0-0.5); HEMATOCRIT 28.2 % (33.0-46.0); HEMOGLOBIN 9.6 g/dL (10.0-15.0); IMMATURE GRANULOCYTE # 0.2 K/uL (0.0-0.3); IMMATURE GRANULOCYTE % 1.3 %; LYMPHOCYTE # 1.9 K/uL (0.8-4.0); LYMPHOCYTE % 12.8 %; MCH 31.6 pg (27.0-34.0); MCV 92.8 fl (83.0-98.0); MONOCYTE % 6.9 %; MPV 9.8 fl (9.4-12.4); NEUTROPHIL # (ANC) 11.2 K/uL (1.8-7.8); NEUTROPHIL % 77.8 %; NRBC % 0 /100WBC (0-0.00); PLATELET COUNT 394 K/uL (150-450); RBC 3.04 M/uL (3.50-5.50); RDW-CV 13.1 % (11.9-14.6); WBC 14.4 K/uL (4.0-11.0)
[2017-03-17 17:11] LABS: BICARBONATE 31.1 mmol/L (18.0-23.0); PCO2 31 mmHg (35-45)
[2017-03-17 17:23] LABS: PO2 90 mmHg (80-90)
[2017-03-17 17:38] LABS: ALBUMIN 2.3 gm/dL (3.5-5.0); ANION GAP 12.9 (10.0-19.0); BLOOD UREA NITROGEN 18 mg/dL (6-24); CALCIUM 8.7 mg/dL (8.5-10.5); CHLORIDE 101 mMol/L (96-110); CO2 28 mMol/L (22-32); CREATININE 0.5 mg/dL (0.5-1.1); PHOSPHORUS 2.9 mg/dL (2.5-4.9); POTASSIUM 3.9 mMol/L (3.7-5.1); SODIUM 138 mMol/L (135-145)
[2017-03-18 04:07] LABS: BICARBONATE 26.5 mmol/L (18.0-23.0); PCO2 39 mmHg (35-45); PO2 90 mmHg (80-90)
[2017-03-18 05:31] LABS: BASOPHIL % 0.3 %; EOSINOPHIL # 0.3 K/uL (0.0-0.5); HEMATOCRIT 29.9 % (33.0-46.0); HEMOGLOBIN 9.8 g/dL (10.0-15.0); IMMATURE GRANULOCYTE # 0.2 K/uL (0.0-0.3); IMMATURE GRANULOCYTE % 1.4 %; LYMPHOCYTE # 1.6 K/uL (0.8-4.0); MCH 31.2 pg (27.0-34.0); MCHC 32.8 gm/dL (32.0-36.5); MCV 95.2 fl (83.0-98.0); MONOCYTE # 1.3 K/uL (0.0-1.0); MONOCYTE % 8.8 %; MPV 9.5 fl (9.4-12.4); NEUTROPHIL # (ANC) 11.1 K/uL (1.8-7.8); NEUTROPHIL % 76.5 %; NRBC % 0 /100WBC (0-0.00); PLATELET COUNT 394 K/uL (150-450); RBC 3.14 M/uL (3.50-5.50); RDW-CV 13.3 % (11.9-14.6); WBC 14.5 K/uL (4.0-11.0)
[2017-03-18 05:35] LABS: ALBUMIN 2.1 gm/dL (3.5-5.0); ALK PHOS 77 IU/L (33-138); ALT 22 IU/L (12-78); ANION GAP 11.1 (10.0-19.0); AST 19 IU/L (10-40); BLOOD UREA NITROGEN 16 mg/dL (6-24); CALCIUM 8.7 mg/dL (8.5-10.5); CHLORIDE 107 mMol/L (96-110); CO2 25 mMol/L (22-32); CREATININE 0.5 mg/dL (0.5-1.1); POTASSIUM 3.1 mMol/L (3.7-5.1); SODIUM 140 mMol/L (135-145); TOTAL BILIRUBIN 0.4 mg/dL (0.0-1.5)
[2017-03-18 15:57] LABS: BICARBONATE 26.6 mmol/L (18.0-23.0); PCO2 44 mmHg (35-45); PO2 82 mmHg (80-90)
[2017-03-18 16:49] LABS: ALBUMIN 2.1 gm/dL (3.5-5.0); ANION GAP 12.1 (10.0-19.0); BLOOD UREA NITROGEN 17 mg/dL (6-24); CALCIUM 8.9 mg/dL (8.5-10.5); CHLORIDE 106 mMol/L (96-110); CO2 26 mMol/L (22-32); CREATININE 0.5 mg/dL (0.5-1.1); PHOSPHORUS 4.3 mg/dL (2.5-4.9); POTASSIUM 4.1 mMol/L (3.7-5.1); SODIUM 140 mMol/L (135-145)
[2017-03-18 16:57] LABS: MAGNESIUM 1.8 mg/dL (1.8-2.6)
[2017-03-19 04:08] LABS: BICARBONATE 27.3 mmol/L (18.0-23.0)
[2017-03-19 04:09] LABS: PCO2 53 mmHg (35-45); PO2 109 mmHg (80-90)
[2017-03-19 04:42] LABS: ALK PHOS 79 IU/L (33-138); ALT 22 IU/L (12-78); ANION GAP 9.8 (10.0-19.0); AST 18 IU/L (10-40); BLOOD UREA NITROGEN 17 mg/dL (6-24); CALCIUM 9.1 mg/dL (8.5-10.5); CHLORIDE 106 mMol/L (96-110); CO2 27 mMol/L (22-32); CREATININE 0.5 mg/dL (0.5-1.1); POTASSIUM 3.8 mMol/L (3.7-5.1); SODIUM 139 mMol/L (135-145); TOTAL BILIRUBIN 0.4 mg/dL (0.0-1.5); TOTAL PROTEIN 6.8 g/dL (6.0-8.4)
[2017-03-19 04:50] LABS: BASOPHIL % 0.3 %; EOSINOPHIL # 0.3 K/uL (0.0-0.5); EOSINOPHIL % 2.6 %; HEMATOCRIT 29.3 % (33.0-46.0); HEMOGLOBIN 9.3 g/dL (10.0-15.0); IMMATURE GRANULOCYTE # 0.1 K/uL (0.0-0.3); IMMATURE GRANULOCYTE % 0.7 %; LYMPHOCYTE % 8.9 %; MCH 30.5 pg (27.0-34.0); MCHC 31.7 gm/dL (32.0-36.5); MCV 96.1 fl (83.0-98.0); MONOCYTE # 0.8 K/uL (0.0-1.0); MONOCYTE % 7.1 %; MPV 9.6 fl (9.4-12.4); NEUTROPHIL # (ANC) 8.9 K/uL (1.8-7.8); NEUTROPHIL % 80.4 %; NRBC % 0 /100WBC (0-0.00); PLATELET COUNT 393 K/uL (150-450); RBC 3.05 M/uL (3.50-5.50); RDW-CV 13.3 % (11.9-14.6); WBC 11.1 K/uL (4.0-11.0)
[2017-03-19 16:52] LABS: BICARBONATE 26.4 mmol/L (18.0-23.0); PCO2 38 mmHg (35-45); PO2 90 mmHg (80-90)
[2017-03-19 17:03] LABS: ANION GAP 9.2 (10.0-19.0); BLOOD UREA NITROGEN 15 mg/dL (6-24); CALCIUM 8.7 mg/dL (8.5-10.5); CHLORIDE 108 mMol/L (96-110); CO2 27 mMol/L (22-32); CREATININE 0.5 mg/dL (0.5-1.1); PHOSPHORUS 3.1 mg/dL (2.5-4.9); POTASSIUM 4.2 mMol/L (3.7-5.1); SODIUM 140 mMol/L (135-145)
[2017-03-19 22:25] LABS: BICARBONATE 25.6 mmol/L (18.0-23.0); PCO2 36 mmHg (35-45)
[2017-03-19 22:26] LABS: PO2 109 mmHg (80-90)
[2017-03-20 04:26] LABS: BICARBONATE 26.6 mmol/L (18.0-23.0)
[2017-03-20 04:27] LABS: PCO2 45 mmHg (35-45); PO2 142 mmHg (80-90)
[2017-03-20 05:44] LABS: ALBUMIN 1.9 gm/dL (3.5-5.0); ALK PHOS 76 IU/L (33-138); ALT 22 IU/L (12-78); ANION GAP 11.3 (10.0-19.0); AST 18 IU/L (10-40); BLOOD UREA NITROGEN 19 mg/dL (6-24); CALCIUM 8.7 mg/dL (8.5-10.5); CHLORIDE 110 mMol/L (96-110); CO2 25 mMol/L (22-32); CREATININE 0.6 mg/dL (0.5-1.1); POTASSIUM 3.3 mMol/L (3.7-5.1); SODIUM 143 mMol/L (135-145); TOTAL BILIRUBIN 0.5 mg/dL (0.0-1.5); TOTAL PROTEIN 6.5 g/dL (6.0-8.4)
[2017-03-20 05:48] LABS: BASOPHIL % 0.2 %; EOSINOPHIL % 0.2 %; HEMATOCRIT 27.9 % (33.0-46.0); IMMATURE GRANULOCYTE # 0.1 K/uL (0.0-0.3); IMMATURE GRANULOCYTE % 0.9 %; LYMPHOCYTE # 1.1 K/uL (0.8-4.0); LYMPHOCYTE % 10.2 %; MCH 30.9 pg (27.0-34.0); MCHC 32.3 gm/dL (32.0-36.5); MCV 95.9 fl (83.0-98.0); MONOCYTE # 0.8 K/uL (0.0-1.0); MONOCYTE % 7.2 %; MPV 9.9 fl (9.4-12.4); NEUTROPHIL # (ANC) 8.5 K/uL (1.8-7.8); NEUTROPHIL % 81.3 %; NRBC % 0 /100WBC (0-0.00); PLATELET COUNT 402 K/uL (150-450); RBC 2.91 M/uL (3.50-5.50); RDW-CV 13.1 % (11.9-14.6); WBC 10.4 K/uL (4.0-11.0)
[2017-03-20 17:13] LABS: BICARBONATE 25.1 mmol/L (18.0-23.0)
[2017-03-20 17:14] LABS: PCO2 33 mmHg (35-45); PO2 88 mmHg (80-90)
[2017-03-20 17:24] LABS: BLOOD UREA NITROGEN 18 mg/dL (6-24); CALCIUM 8.7 mg/dL (8.5-10.5); CHLORIDE 114 mMol/L (96-110); CO2 24 mMol/L (22-32); CREATININE 0.6 mg/dL (0.5-1.1); PHOSPHORUS 3.4 mg/dL (2.5-4.9); POTASSIUM 3.4 mMol/L (3.7-5.1)
[2017-03-20 17:32] LABS: ALBUMIN 1.8 gm/dL (3.5-5.0); ANION GAP 12.4 (10.0-19.0); SODIUM 147 mMol/L (135-145)
[2017-03-21 05:05] LABS: ALK PHOS 67 IU/L (33-138); ALT 18 IU/L (12-78); AST 17 IU/L (10-40); BLOOD UREA NITROGEN 17 mg/dL (6-24); CALCIUM 8.8 mg/dL (8.5-10.5); CO2 25 mMol/L (22-32); CREATININE 0.6 mg/dL (0.5-1.1); TOTAL BILIRUBIN 0.5 mg/dL (0.0-1.5); TOTAL PROTEIN 6.5 g/dL (6.0-8.4)
[2017-03-21 05:17] LABS: ALBUMIN 1.8 gm/dL (3.5-5.0); CHLORIDE 117 mMol/L (96-110); SODIUM 150 mMol/L (135-145)
[2017-03-21 05:25] LABS: BASOPHIL % 0.4 %; EOSINOPHIL # 0.1 K/uL (0.0-0.5); EOSINOPHIL % 0.7 %; IMMATURE GRANULOCYTE # 0.1 K/uL (0.0-0.3); LYMPHOCYTE # 1.3 K/uL (0.8-4.0); LYMPHOCYTE % 18.1 %; MCH 30.3 pg (27.0-34.0); MCV 94.7 fl (83.0-98.0); MONOCYTE # 0.7 K/uL (0.0-1.0); MPV 9.9 fl (9.4-12.4); NEUTROPHIL # (ANC) 5.1 K/uL (1.8-7.8); NEUTROPHIL % 70.8 %; NRBC % 0 /100WBC (0-0.00); PLATELET COUNT 422 K/uL (150-450); RBC 2.64 M/uL (3.50-5.50); RDW-CV 13.3 % (11.9-14.6); WBC 7.2 K/uL (4.0-11.0)
[2017-03-21 18:20] LABS: BLOOD UREA NITROGEN 18 mg/dL (6-24); CALCIUM 8.7 mg/dL (8.5-10.5); CO2 22 mMol/L (22-32); CREATININE 0.7 mg/dL (0.5-1.1); PHOSPHORUS 3.9 mg/dL (2.5-4.9); POTASSIUM 3.6 mMol/L (3.7-5.1)
[2017-03-21 18:23] LABS: ANION GAP 11.6 (10.0-19.0); CHLORIDE 119 mMol/L (96-110); SODIUM 149 mMol/L (135-145)
[2017-03-22 05:07] LABS: ALK PHOS 67 IU/L (33-138); ALT 19 IU/L (12-78); AST 21 IU/L (10-40); BLOOD UREA NITROGEN 18 mg/dL (6-24); CO2 23 mMol/L (22-32); CREATININE 0.6 mg/dL (0.5-1.1); POTASSIUM 3.4 mMol/L (3.7-5.1); TOTAL BILIRUBIN 0.5 mg/dL (0.0-1.5); TOTAL PROTEIN 6.9 g/dL (6.0-8.4)
[2017-03-22 05:08] LABS: ANION GAP 10.4 (10.0-19.0); CHLORIDE 119 mMol/L (96-110); SODIUM 149 mMol/L (135-145)
[2017-03-22 05:11] LABS: BASOPHIL % 0.4 %; EOSINOPHIL # 0.1 K/uL (0.0-0.5); EOSINOPHIL % 1.3 %; HEMATOCRIT 25.1 % (33.0-46.0); IMMATURE GRANULOCYTE # 0.1 K/uL (0.0-0.3); IMMATURE GRANULOCYTE % 1.3 %; LYMPHOCYTE # 1.2 K/uL (0.8-4.0); LYMPHOCYTE % 17.7 %; MCH 30.7 pg (27.0-34.0); MCHC 31.9 gm/dL (32.0-36.5); MCV 96.2 fl (83.0-98.0); MONOCYTE # 0.6 K/uL (0.0-1.0); MONOCYTE % 9.2 %; MPV 9.7 fl (9.4-12.4); NEUTROPHIL # (ANC) 4.8 K/uL (1.8-7.8); NEUTROPHIL % 70.1 %; NRBC % 0 /100WBC (0-0.00); PLATELET COUNT 436 K/uL (150-450); RBC 2.61 M/uL (3.50-5.50); RDW-CV 13.6 % (11.9-14.6); WBC 6.8 K/uL (4.0-11.0)
[2017-03-23 06:03] LABS: ALBUMIN 2.1 gm/dL (3.5-5.0); ALK PHOS 65 IU/L (33-138); ALT 18 IU/L (12-78); AST 17 IU/L (10-40); BASOPHIL % 0.3 %; BLOOD UREA NITROGEN 19 mg/dL (6-24); CALCIUM 8.9 mg/dL (8.5-10.5); CO2 23 mMol/L (22-32); CREATININE 0.5 mg/dL (0.5-1.1); EOSINOPHIL # 0.2 K/uL (0.0-0.5); EOSINOPHIL % 2.4 %; HEMATOCRIT 24.7 % (33.0-46.0); IMMATURE GRANULOCYTE # 0.2 K/uL (0.0-0.3); IMMATURE GRANULOCYTE % 2.4 %; LYMPHOCYTE # 1.4 K/uL (0.8-4.0); LYMPHOCYTE % 20.9 %; MCH 31.1 pg (27.0-34.0); MCHC 32.4 gm/dL (32.0-36.5); MCV 96.1 fl (83.0-98.0); MONOCYTE # 0.6 K/uL (0.0-1.0); MONOCYTE % 9.4 %; MPV 9.6 fl (9.4-12.4); NEUTROPHIL # (ANC) 4.3 K/uL (1.8-7.8); NEUTROPHIL % 64.6 %; NRBC % 0 /100WBC (0-0.00); PLATELET COUNT 431 K/uL (150-450); POTASSIUM 3.3 mMol/L (3.7-5.1); RBC 2.57 M/uL (3.50-5.50); RDW-CV 13.4 % (11.9-14.6); WBC 6.6 K/uL (4.0-11.0)
[2017-03-23 06:04] LABS: ANION GAP 11.3 (10.0-19.0); CHLORIDE 116 mMol/L (96-110); SODIUM 147 mMol/L (135-145); TOTAL BILIRUBIN 0.3 mg/dL (0.0-1.5)
[2017-03-24 06:38] LABS: ALBUMIN 2.3 gm/dL (3.5-5.0); ALK PHOS 76 IU/L (33-138); ALT 21 IU/L (12-78); AST 24 IU/L (10-40); BLOOD UREA NITROGEN 17 mg/dL (6-24); CHLORIDE 112 mMol/L (96-110); CO2 23 mMol/L (22-32); CREATININE 0.5 mg/dL (0.5-1.1); SODIUM 144 mMol/L (135-145); TOTAL PROTEIN 7.3 g/dL (6.0-8.4)
[2017-03-24 06:40] LABS: TOTAL BILIRUBIN 0.5 mg/dL (0.0-1.5)
[2017-03-24 06:48] LABS: BASOPHIL % 0.3 %; EOSINOPHIL # 0.2 K/uL (0.0-0.5); EOSINOPHIL % 2.7 %; HEMATOCRIT 27.1 % (33.0-46.0); IMMATURE GRANULOCYTE # 0.1 K/uL (0.0-0.3); IMMATURE GRANULOCYTE % 2.2 %; LYMPHOCYTE # 1.4 K/uL (0.8-4.0); LYMPHOCYTE % 21.6 %; MCHC 33.2 gm/dL (32.0-36.5); MCV 93.4 fl (83.0-98.0); MONOCYTE # 0.6 K/uL (0.0-1.0); MONOCYTE % 9.5 %; MPV 9.5 fl (9.4-12.4); NEUTROPHIL # (ANC) 4.1 K/uL (1.8-7.8); NEUTROPHIL % 63.7 %; NRBC % 0 /100WBC (0-0.00); PLATELET COUNT 478 K/uL (150-450); RDW-CV 13.2 % (11.9-14.6); WBC 6.4 K/uL (4.0-11.0)
[2017-03-24 17:41] LABS: POTASSIUM 3.1 mMol/L (3.7-5.1)
[2017-03-25 06:25] LABS: BASOPHIL % 0.3 %; EOSINOPHIL # 0.2 K/uL (0.0-0.5); EOSINOPHIL % 2.4 %; HEMATOCRIT 27.1 % (33.0-46.0); HEMOGLOBIN 9.1 g/dL (10.0-15.0); IMMATURE GRANULOCYTE # 0.1 K/uL (0.0-0.3); IMMATURE GRANULOCYTE % 1.3 %; LYMPHOCYTE # 1.4 K/uL (0.8-4.0); LYMPHOCYTE % 20.1 %; MCH 31.2 pg (27.0-34.0); MCHC 33.6 gm/dL (32.0-36.5); MCV 92.8 fl (83.0-98.0); MONOCYTE # 0.6 K/uL (0.0-1.0); MONOCYTE % 8.7 %; MPV 9.6 fl (9.4-12.4); NEUTROPHIL # (ANC) 4.7 K/uL (1.8-7.8); NEUTROPHIL % 67.2 %; NRBC % 0 /100WBC (0-0.00); PLATELET COUNT 479 K/uL (150-450); RBC 2.92 M/uL (3.50-5.50); RDW-CV 13.3 % (11.9-14.6)
[2017-03-25 06:30] LABS: ALBUMIN 2.4 gm/dL (3.5-5.0); ALK PHOS 82 IU/L (33-138); ALT 25 IU/L (12-78); ANION GAP 13.4 (10.0-19.0); AST 26 IU/L (10-40); BLOOD UREA NITROGEN 14 mg/dL (6-24); CALCIUM 8.7 mg/dL (8.5-10.5); CHLORIDE 113 mMol/L (96-110); CO2 23 mMol/L (22-32); CREATININE 0.5 mg/dL (0.5-1.1); POTASSIUM 3.4 mMol/L (3.7-5.1); SODIUM 146 mMol/L (135-145); TOTAL BILIRUBIN 0.5 mg/dL (0.0-1.5); TOTAL PROTEIN 7.2 g/dL (6.0-8.4)
[2017-03-26 06:43] LABS: ALBUMIN 2.4 gm/dL (3.5-5.0); ALK PHOS 83 IU/L (33-138); ALT 32 IU/L (12-78); ANION GAP 12.1 (10.0-19.0); AST 24 IU/L (10-40); BLOOD UREA NITROGEN 15 mg/dL (6-24); CHLORIDE 110 mMol/L (96-110); CO2 25 mMol/L (22-32); CREATININE 0.6 mg/dL (0.5-1.1); POTASSIUM 4.1 mMol/L (3.7-5.1); SODIUM 143 mMol/L (135-145); TOTAL BILIRUBIN 0.4 mg/dL (0.0-1.5); TOTAL PROTEIN 7.5 g/dL (6.0-8.4)
== END 2017-03-26 10:20 | DRG 25 ==
LOC: GMED 15:21 → EDBD 15:37 → GICU 15:37
PROVIDERS: Anesthesiology; Emergency Medicine; ADMIT Neurological Surgery
DX: S06.5X0A Traumatic subdural hemorrhage without loss of consciousness, initial encounter (principal); J69.0 Pneumonitis due to inhalation of food and vomit; J96.00 Acute respiratory failure, unspecified whether with hypoxia or hypercapnia; E87.3 Alkalosis; D62 Acute posthemorrhagic anemia; G91.9 Hydrocephalus, unspecified; I27.2 Other secondary pulmonary hypertension; K86.1 Other chronic pancreatitis; J95.851 Ventilator associated pneumonia; W18.30XA Fall on same level, unspecified, initial encounter; Z51.5 Encounter for palliative care; E11.9 Type 2 diabetes mellitus without complications; F32.9 Major depressive disorder, single episode, unspecified; G47.33 Obstructive sleep apnea (adult) (pediatric); G89.29 Other chronic pain; I10 Essential (primary) hypertension; K21.9 Gastro-esophageal reflux disease without esophagitis; Z78.9 Other specified health status; E87.6 Hypokalemia; Z91.81 History of falling; E66.9 Obesity, unspecified; Z68.36 Body mass index [BMI] 36.0-36.9, adult; Z78.1 Physical restraint status; G93.2 Benign intracranial hypertension; L27.0 Generalized skin eruption due to drugs and medicaments taken internally; T36.95XA Adverse effect of unspecified systemic antibiotic, initial encounter; B95.61 Methicillin susceptible Staphylococcus aureus infection as the cause of diseases classified elsewhere; Z66 Do not resuscitate
CPT/HCPCS: C1713; C1751; C1763; G0008; J0360; J0692; J1953; J2250; J2270; J2370; J2543; J2704; J3010; J3370; J3475; J3480; J7030; J7040; J7050; P9016; P9047

== ENCOUNTER → 2017-03-26 | Outpatient (CLI) | payer MEDICARE, OTHER ==
[~2017-03-26] MED LIST: ACTOS45 MG PO; CALCIUM GLUC500 MG PO; CYMBALTA30 MG; CYMBALTA30 MG PO; GLUCOPHAGE1000 MG PO; INDERAL40 MG PO; LYRICA 75MG CAP75 MG PO; MECLIZINE HCL25 M1 PO; MS CONTIN30 MG PO; TRADJENTA5 MG PO; ULTRAM50 MG PO; VESICARE10 MG PO; WELLBUTRIN XL300 M2 PO; ZOCOR40 MG PO
== END | disposition disaster alternative care site (69) ==
LOC: GAMB 10:46
DX: S06.5X9A Traumatic subdural hemorrhage with loss of consciousness of unspecified duration, initial encounter (principal); Z79.899 Other long term (current) drug therapy; X58.XXXA Exposure to other specified factors, initial encounter